=== PATIENT | female | born 1945 | race Caucasian/White ===

== ENCOUNTER → 2017-02-21 | Outpatient (CLI) | payer OTHER | LOC: BRMIMAGING 10:40 | PROVIDERS: ATTEND Internal Medicine | DX: M81.0 Age-related osteoporosis without current pathological fracture (principal); D51.0 Vitamin B12 deficiency anemia due to intrinsic factor deficiency; E53.8 Deficiency of other specified B group vitamins ==

== ENCOUNTER → 2017-03-28 | Outpatient (CLI) | payer OTHER | LOC: BRMIMAGING 10:48 | PROVIDERS: ATTEND Internal Medicine | DX: Z12.31 Encounter for screening mammogram for malignant neoplasm of breast (principal); Z80.3 Family history of malignant neoplasm of breast | CPT/HCPCS: G0202 ==

== ENCOUNTER → 2017-04-13 | Outpatient (CLI) | payer OTHER | LOC: BRMIMAGING 08:51 | PROVIDERS: ATTEND Internal Medicine | DX: R92.8 Other abnormal and inconclusive findings on diagnostic imaging of breast (principal); Z80.3 Family history of malignant neoplasm of breast | CPT/HCPCS: G0206 ==

== ENCOUNTER → 2018-04-15 | Outpatient (CLI) | payer OTHER | LOC: SBRMNEURO 21:00 | PROVIDERS: ATTEND Internal Medicine Pulmonary Disease | DX: G47.33 Obstructive sleep apnea (adult) (pediatric) (principal) ==

== ENCOUNTER 2018-05-21 16:43 | Emergency (ER) | payer OTHER ==
--- NOTE | 2018-05-21 17:01 | EDPHY ---
H & P Time Seen by Provider: 05/21/18 16:47 HPI/ROS: 72-year-old female referred to the emergency department by her primary care physician for drainage of an infected sebaceous cyst on her back. No fevers or chills. Review of systems As per HPI General no fever no chills no weakness HEENT no eye pain no eye discharge. No eye redness, no sore throat Respiratory no cough, no shortness of breath Cardiac no chest pain, no peripheral edema GI no abdominal pain, no diarrhea, no constipation, no nausea, no vomiting no flank pain, no hematuria, no dysuria Musculoskeletal no myalgias, no joint pain Heme no easy bruising, no easy bleeding Endo no polyuria, no polydipsia Skin positive rashes, no pruritus Neuro no syncope, no dizziness, no headaches Psych is no suicidal ideation, no homicidal ideation Past Medical/Surgical History: Asthma Social History: no alcohol or drug use Smoking Status: Former smoker Physical Exam: 72-year-old female alert and oriented no acute distress nontoxic Appearance, afebrile Alert and oriented in no acute distress nontoxic appearance , afebrile Atraumatic normocephalic Neck no JVD Lungs clear to auscultation, no respiratory distress Heart regular rate and rhythm Extremities no cyanosis clubbing edema Back-midline upper back 3 x 3 cm erythematous mass, with midline fluctuance rcumferential erythema Constitutional: Initial Vital Signs Temperature (C) 37 C 05/21/18 16:59 Heart Rate 74 05/21/18 16:59 Respiratory Rate 16 05/21/18 16:59 Blood Pressure 134/81 H 05/21/18 16:59 O2 Sat (%) 94 05/21/18 16:59 O2 Delivery Mode Room Air Allergies/Adverse Reactions: aspirin Allergy (Verified 05/21/18 17:05) Pt reports dizzy, nausea antiobiotics Allergy (Uncoded 05/21/18 17:05) Pt reports dizzy, nausea, vomiting Home Medications: Medication Instructions Recorded Budesonide 05/21/18 Fluticasone Nasal 05/21/18 Singulair 05/21/18 Medical Decision Making Procedures: Abscess-procedure note The patient gave verbal consent for drainage of a subcutaneous abscess. Risk of bleeding and pain were explained to the patient. The most fluctuant aspect of the abscess was identified. A scalpel was used to incise the abscess. 15 mL of purulent foul smelling drainage was expressed. Abscess was irrigated and packed. Wound culture was sent. The patient tolerated procedure well. ED Course/Re-evaluation: Patient seen and evaluated for infected sebaceous cyst on her back of several days duration. She refused local anesthetic and refused antibiotics. Impression Abscess, mid upper back Plan Incision and drainage Patient refusing antibiotics for discharge, she states she is allergic to all antibiotics Advised warm compresses Follow-up with primary care physician for packing removal in 48-72 hours. Differential Diagnosis: Differential diagnosis considered but not limited to Abscess, cellulitis Departure - Departure Disposition: Home, Routine, Self-Care Clinical Impression: Infected sebaceous cyst, Abscess Condition: Good Instructions: Abscess (ED) Referrals: Dennise Peña MD [Primary Care Provider] - As per Instructions
[2018-05-21 19:27] VITALS: BP 130/58
== END 2018-05-21 18:52 | disposition home or self-care (01) ==
LOC: CED 16:43
PROC: 0W9 Anatomical Regions, General, Drainage (ICD-10-PCS; principal; 2018-05-21)
DX: L72.3 Sebaceous cyst (principal); J45.909 Unspecified asthma, uncomplicated; Z87.891 Personal history of nicotine dependence

== ENCOUNTER → 2018-11-07 | Outpatient (CLI) | payer OTHER | LOC: BRMIMAGING 12:40 | PROVIDERS: ATTEND Internal Medicine | DX: Z12.31 Encounter for screening mammogram for malignant neoplasm of breast (principal); Z80.3 Family history of malignant neoplasm of breast ==